=== PATIENT | female | born 1960 | race Caucasian/White ===

== ENCOUNTER 2016-07-24 13:07 | Day surgery (SDC) | payer BC ==
[~2016-07-24 13:07] MED LIST: FENTANYL PF 100MCG/2ML VIAL IV ONE; PROPOFOL 10 MG/ML VIAL IV ONE
--- NOTE | 2016-07-28 15:50 | Operative Note ---
DATE OF SURGERY: 07/24/2016 REFERRING PROVIDER: Keyonna Wong MD PREOPERATIVE DIAGNOSIS: History of gastric intestinal metaplasia of gastric body/antrum. POSTOPERATIVE DIAGNOSES: 1. Gastric intestinal metaplasia. 2. Gastric polyps. OPERATION: ESOPHAGOGASTRODUODENOSCOPY with biopsy. PROCEDURE: After informed consent was obtained, the patient was placed in the left lateral decubitus position in the endoscopy suite, sedated and monitored by the Department of Anesthesia. Once sedated, a well-lubricated [id number] gastroscope was placed in the posterior oropharynx and under direct visualization passed to the proximal esophagus. The endoscope was advanced to the proximal, mid and distal esophagus. The GE junction and esophagus were unremarkable. The gastric body and antrum were carefully inspected. There were multiple polyps in the gastric body, which were small to medium in size. There was no evidence of hemorrhage. The body and antrum also demonstrated mild erythematous changes. No dorian white plaques were seen. No masses were seen. The pylorus, duodenal bulb and sweep were unremarkable. J-turn views of the proximal stomach revealed multiple gastric polyps. The endoscope was then straightened. Multiple gastric body biopsies were obtained for histology. Multiple gastric polyps were biopsied for histology. No excessive bleeding was noted. The stomach was deflated, the endoscope was removed from the patient with no new findings noted. RECOMMENDATIONS: Patient should resume her medications and diet. No changes otherwise noted compared to previous histology. Repeat upper endoscopy in 2 years would be suggested. As always, thank you for allowing me to participate in the health care of your patients. Fei Fitzpatrick DO CC: Ml Wong MD [facility]
== END 2016-07-24 15:08 | disposition home or self-care (01) ==
LOC: HOP 13:07
PROVIDERS: ATTEND Internal Medicine Gastroenterology
DX: Z87.19 Personal history of other diseases of the digestive system (principal); K31.7 Polyp of stomach and duodenum
CPT/HCPCS: 43239; 00740; J3010

== ENCOUNTER 2019-05-12 13:55 | Day surgery (SDC) | payer BC ==
[2019-05-12] MEDS ORDERED: PROPOFOL 10 MG/ML VIAL IV ONE (13:56)
[2019-05-12] MEDS ORDERED: LIDOCAINE 2% MDV (20MG/ML) 20ML VIAL IV ONE (13:56)
--- NOTE | 2019-05-13 07:20 | Operative Note ---
OPERATION: ESOPHAGOGASTRODUODENOSCOPY. PREOPERATIVE DIAGNOSIS: History of gastric intestinal metaplasia of gastric antrum. POSTOPERATIVE DIAGNOSES: 1. Rule out persistent GIM. 2. Gastric polyps. PROCEDURE: After informed consent was obtained from the patient, she was placed in the left lateral decubitus position in the endoscopy suite, sedated and monitored by the department of anesthesia. Once sedated, a well-lubricated [id number] gastroscope was placed in the posterior oropharynx under direct visualization and passed to the proximal esophagus. The endoscope was advanced through the proximal, mid, and distal esophagus. The esophagus and GE junction were unremarkable. The gastric body demonstrated a few gastric polyps. The antrum was unremarkable. Random biopsies obtained to rule out microscopic evidence of persistent gastric intestinal metaplasia. The duodenal bulb and sweep were unremarkable. J-turn views of the proximal stomach were unrevealing other than some gastric polyps being noted. The endoscope was straightened. Random gastric biopsies obtained to rule out persistent gastric intestinal metaplasia. The area was rinsed, fluid removed. The endoscope removed from the patient with no new findings or abnormalities noted. RECOMMENDATIONS: It should be noted that she had negative biopsies in 2014 and 2016. If she once again has no evidence of persistent gastric intestinal metaplasia on current biopsies, it seems unnecessary to continue surveillance. I discussed this with the patient and she was in agreement. As always, thank you for allowing me to participate in the healthcare of your patients. [id number]
== END 2019-05-12 15:35 | disposition home or self-care (01) ==
LOC: HOP 13:55
PROVIDERS: ATTEND Internal Medicine Gastroenterology
DX: Z87.19 Personal history of other diseases of the digestive system (principal); K21.9 Gastro-esophageal reflux disease without esophagitis; K29.50 Unspecified chronic gastritis without bleeding; K31.7 Polyp of stomach and duodenum